=== PATIENT | female | born 1990 ===

== ENCOUNTER 2020-10-12 07:44 | Inpatient (IN) | payer BC ==
[2020-10-12] MEDS ORDERED: Nalbuphine 10 MG/1 ML Vial IVPUSH PRN ×2 (08:36→22:24)
[2020-10-12] MEDS ORDERED: Water For Irrigation,Sterile 1,000 ML Container IRR PRN (08:36)
[2020-10-12] MEDS ORDERED: Misoprostol 200 MCG Tab PO PRN (08:36)
[2020-10-12] MEDS ORDERED: Methylergonovine 0.2 MG/1 ML Amp IM PRN (08:36)
[2020-10-12] MEDS ORDERED: Tranexamic Acid 1,000 MG in Sodium Chloride 0.9% 100 ML IV PRN ×2 (08:36→22:40)
[2020-10-12] MEDS ORDERED: Ampicillin 2 GM in Sodium Chloride 0.9% 100 ML IV ONE (08:36)
[2020-10-12] MEDS ORDERED: Lidocaine 1% 50 ML MDV INJECT PRN (08:36)
[2020-10-12] MEDS ORDERED: Butorphanol 1 MG/ML SDV IVPUSH PRN (08:36)
[2020-10-12] MEDS ORDERED: Sodium Chloride 0.9% 2.5 ML Syringe FLUSH PRN (08:36)
[2020-10-12] MEDS ORDERED: Sodium Chloride 0.9% 10 ML SDV IV PRN (08:36)
[2020-10-12] MEDS ORDERED: Sodium Chloride 0.9% 10 ML Syringe FLUSH PRN (08:36)
[2020-10-12] MEDS ORDERED: Carboprost Tromethamine 250 MCG/1 ML Amp IM PRN (08:36)
[2020-10-12] MEDS ORDERED: Lactated Ringers 1,000 ML IV SCH (08:45)
[2020-10-12] MEDS ORDERED: Oxytocin/0.9 % Sodium Chloride 30 UNIT/500 ML BAG IV SCH ×2 (08:45→11:30)
--- NOTE | 2020-10-12 10:26 | US ---
INDICATION: Low-lying placenta, follow-up. TECHNIQUE: Ultrasound OB pelvis transvaginal. Grayscale and color Doppler imaging was performed COMPARISON: Ob ultrasound 09/15/2020, 08/15/2020 and 07/23/2020 FINDINGS: Sonographic imaging demonstrates a single living intrauterine gestation. Fetus demonstrates a regular cardiac rate of 130 beats per minute. Fetus has a cephalic orientation. The placenta lies posterior with what appears to be the thin placental edge approximately 1.4 cm from the cervical os. The cervix is closed and measures 3.2 cm. IMPRESSION: 1. Single live intrauterine gestation. 2. Posteriorly positioned placenta, remains low lying with the placental edge approximately 1.4 cm from the cervical os. Dictated by Gay oJnes MD @ Oct 12 2020 10:17AM Signed by Dr. Gay Jones @ Oct 12 2020 10:24AM
[2020-10-12] MEDS ORDERED: Terbutaline 1 MG/ML SDV SUBCUT PRN (11:23)
[2020-10-12] MEDS ORDERED: Misoprostol 25 MCG (1/4 of 100 MCG) Tab VAG PRN ×2 (11:23)
[2020-10-12] MEDS ORDERED: Misoprostol 25 MCG (1/4 of 100 MCG) Tab PO ONE (11:27)
--- NOTE | 2020-10-12 11:55 | PCM.LDHP ---
L&D History of Present Illness - General Date of Service: 10/12/20 Admit Problem/Dx: Patient Status Order with Admit Dx/Problem 10/12/20 08:36 Patient Status [ADT] Routine Admission Diagnosis/Problem Admission Diagnosis/Problem Source of Information: Patient, Family, Cvor Nurse History Limitations: Reports: No Limitations - History of Present Illness Introduction:: Am caring for patient in an emergent setting-- Lissette was called out of town for a family emergency and will be gone through the week. Patient was scheduled for elective induction of labor and has chosen to proceed with plan of care. complicated by low lying placenta--sonogram today reveals a posterior low lying placenta measuring 1.38 cm from cervical os. 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: Musculoskeletal History: Reports: None Neurological History: Reports: None Psychiatric History: Reports: None Endocrine/Metabolic History: Reports: None Hematologic History: Reports: None Immunologic History: Reports: None Oncologic (Cancer) History: Reports: None Dermatologic History: Reports: None - Infectious Disease History Infectious Disease History: Reports: Chicken Pox, Measles - Past Surgical History HEENT Surgical History: Reports: None Female Surgical History: Reports: None Social & Family History - Family History HEENT: Reports: None Cardiac: Reports: Hypertension Respiratory: Reports: None GI: Reports: None : Reports: None OBGYN: Reports: Musculoskeletal: Reports: None Neurological: Reports: Alzheimers Disease, CVA Psychiatric: Reports: None Endocrine/Metabolic: Reports: Diabetes, Type I Hematologic: Reports: None Immunologic: Reports: None Dermatologic: Reports: None Oncologic: Reports: Bladder - Tobacco Use Tobacco Use Status *Q: Never Tobacco User Second Hand Smoke Exposure: No - Caffeine Use Caffeine Use: Reports: Soda - Recreational Drug Use Recreational Drug Use: No H&P Review of Systems - Review of Systems: Review Of Systems: See Below General: Reports: No Symptoms HEENT: Reports: No Symptoms Pulmonary: Reports: No Symptoms Cardiovascular: Reports: No Symptoms Gastrointestinal: Reports: No Symptoms Genitourinary: Reports: Frequency. Denies: Dysuria, Burning, Discharge Skin: Reports: No Symptoms Psychiatric: Reports: No Symptoms Neurological: Reports: No Symptoms Hematologic/Lymphatic: Reports: No Symptoms Immunologic: Reports: No Symptoms L&D Exam - Exam Exam: See Below - Vital Signs Weight: 67.132 kg - OB Specific Fundal Height In cm: 38 Contraction Duration (sec): none Presentation: Vertex (via sonogram today) - Wallace Score Wallace Score Cervix Position: Posterior Wallace Score Consistency: Medium Wallace Score Effacement: 31-50% Wallace Score Dilation: Closed Wallace Score 's Station: -3 Wallace Score Total: 2 - Exam General: Alert, Oriented HEENT: Conjunctiva Clear, Mucosa Moist & Pelzer Neck: Supple, Trachea Midline Lungs: Normal Respiratory Effort Cardiovascular: Regular Rate, Regular Rhythm GI/Abdominal Exam: Normal Bowel Sounds, Soft, Non-Tender Genitourinary: Normal external exam. No: Vaginal bleeding Back Exam: Normal Inspection Extremities: Normal Capillary Refill, Pedal Edema (1+). No: Felipe's Sign Skin: Warm, Dry, Intact Neurological: Reflexes Equal Bilateral Psychiatric: Alert, Normal Affect, Anxious - Patient Data Lab Results Last 24 hrs: Laboratory Results - last 24 hr 10/12/20 10/12/20 10/12/20 Range/Units 08:30 08:30 09:35 WBC 12.03 H (4.0-11.0) K/uL RBC 4.27 L (4.30-5.90) M/uL Hgb 10.5 L (12.0-16.0) g/dL Hct 33.5 L (36.0-46.0) % MCV 78.5 L (80.0-98.0) fL MCH 24.6 L (27.0-32.0) pg MCHC 31.3 (31.0-37.0) g/dL RDW Std Deviation 48.7 (28.0-62.0) fl RDW Coeff of Ambrocio 18 H (11.0-15.0) % Plt Count 303 (150-400) K/uL MPV 11.00 (7.40-12.00) fL Nucleated RBC % 0.0 /100WBC Nucleated RBCs # 0 K/uL SARS-CoV-2 RNA (TIMMY) NEGATIVE (NEGATIVE) Blood Type O POSITIVE Antibody Screen NEGATIVE Result Diagrams: 03/07/21 08:30 - Problem List (1) Low lying placenta nos or without hemorrhage, third trimester SNOMED Code(s): 670304991, 919065694 ICD Code: O44.43 - LOW LYING PLACENTA NOS OR WITHOUT HEMOR, THIRD TRIMESTER Status: Acute Current Visit: Yes (2) Term SNOMED Code(s): 19024317 ICD Code: Z34.90 - ENCNTR FOR SUPRVSN OF NORMAL , UNSP, UNSP TRIMESTER Status: Acute Current Visit: Yes (3) Term SNOMED Code(s): 25736693 ICD Code: Z34.90 - ENCNTR FOR SUPRVSN OF NORMAL , UNSP, UNSP TRIMESTER Status: Acute Current Visit: Yes Problem List Initiated/Reviewed/Updated: Yes Orders Last 24hrs: Active Orders 24 hr Category Date Time Status Patient Status [ADT] Routine ADT 10/12/20 08:36 Active Bedrest Bathroom Privileges [RC] ASDIRECTED Care 10/12/20 11:23 Active Communication Order [RC] ASDIRECTED Care 10/12/20 11:23 Active Communication Order [RC] ASDIRECTED Care 10/12/20 11:23 Active Communication Order [RC] ASDIRECTED Care 10/12/20 11:23 Active Heart Tones [RC] CONTINUOUS Care 10/12/20 08:36 Active Non Stress Test [RC] PER UNIT ROUTINE Care 10/12/20 08:36 Active May Shower [RC] ASDIRECTED Care 10/12/20 08:36 Active Notify Provider [RC] PRN Care 10/12/20 08:36 Active Notify Provider [RC] PRN Care 10/12/20 11:23 Active Notify Provider [RC] PRN Care 10/12/20 11:23 Active Notify Provider [RC] STAT Care 10/12/20 11:23 Active Up ad Brianna [RC] ASDIRECTED Care 10/12/20 08:36 Active Vaginal Exam [RC] PRN Care 10/12/20 08:36 Active Vaginal Exam [RC] PRN Care 10/12/20 11:23 Active Vital Signs [RC] PER UNIT ROUTINE Care 10/12/20 08:36 Active Vital Signs [RC] PER UNIT ROUTINE Care 10/12/20 11:23 Active RPR (SYPHILIS SERO) W/ RFLX [REF] Routine Lab 10/12/20 08:30 Received Butorphanol [Stadol] Med 10/12/20 08:36 Active 1 mg IVPUSH Q1H PRN Carboprost Tromethamine [Hemabate DS] Med 10/12/20 08:36 Active 250 mcg IM ASDIRECTED PRN Lactated Ringers [Ringers, Lactated] 1,000 ml Med 10/12/20 08:45 Active IV ASDIRECTED Lidocaine 1% [Xylocaine 1%] Med 10/12/20 08:36 Active 50 ml INJECT ONETIME PRN Methylergonovine [Methergine] Med 10/12/20 08:36 Active 0.2 mg IM ASDIRECTED PRN Nalbuphine [Nubain] Med 10/12/20 08:36 Active 10 mg IVPUSH Q1H PRN Oxytocin/0.9 % Sodium Chloride [Oxytocin 30 Unit/500 ML Med 10/12/20 08:45 Active -NS] 30 unit in 500 ml IV TITRATE Oxytocin/0.9 % Sodium Chloride [Oxytocin 30 Unit/500 ML Med 10/12/20 11:30 Active -NS] 30 unit in 500 ml IV TITRATE Sodium Chloride 0.9% [Normal Saline] Med 10/12/20 08:36 Active 10 ml IV ASDIRECTED PRN Sodium Chloride 0.9% [Saline Flush] Med 10/12/20 08:36 Active 10 ml FLUSH ASDIRECTED PRN Sodium Chloride 0.9% [Saline Flush] Med 10/12/20 08:36 Active 2.5 ml FLUSH ASDIRECTED PRN Terbutaline [Brethine] Med 10/12/20 11:23 Active 0.25 mg SUBCUT ASDIRECTED PRN Tranexamic Acid [Cyklokapron] 1,000 mg Med 10/12/20 08:36 Active Sodium Chloride 0.9% [Normal Saline] 100 ml IV ONETIME Water For Irrigation,Sterile [Sterile Water for Med 10/12/20 08:36 Active Irrigation] 1,000 ml IRR ASDIRECTED PRN miSOPROStoL [Cytotec] Med 10/12/20 08:36 Active 200 mcg PO ONETIME PRN miSOPROStoL [Cytotec] Med 10/12/20 11:23 Active 25 mcg VAG ONETIME PRN miSOPROStoL [Cytotec] Med 10/12/20 11:23 Active 25 mcg VAG Q4H PRN Scalp Electrode [WOMSER] Per Unit Routine Oth 10/12/20 08:36 Ordered Medication Administration Instruction [OM.PC] Q3H Oth 10/12/20 11:30 Ordered Peripheral IV Insertion Adult [OM.PC] Routine Oth 10/12/20 08:36 Ordered Resuscitation Status Routine Resus Stat 10/12/20 08:36 Ordered Medication Orders Butorphanol Tartrate (Stadol) 1 mg IVPUSH Q1H PRN PRN Reason: Pain Carboprost Tromethamine (Hemabate Ds) 250 mcg IM ASDIRECTED PRN PRN Reason: Post Hemorrhage Lactated Ringer's (Ringers, Lactated) 1,000 mls @ 150 mls/hr IV ASDIRECTED CHANDU Oxytocin/Sodium Chloride (Oxytocin 30 Unit/500 Ml-Ns) 30 unit in 500 mls @ 500 mls/hr IV TITRATE CHANDU Tranexamic Acid 1,000 mg/ (Sodium Chloride) 110 mls @ 660 mls/hr IV ONETIME PRN PRN Reason: Bleeding Oxytocin/Sodium Chloride (Oxytocin 30 Unit/500 Ml-Ns) 30 unit in 500 mls @ 2 mls/hr IV TITRATE CHANDU; Protocol Lidocaine HCl (Xylocaine 1%) 50 ml INJECT ONETIME PRN PRN Reason: Laceration repair Methylergonovine Maleate (Methergine) 0.2 mg IM ASDIRECTED PRN PRN Reason: Post Hemorrhage Misoprostol (Cytotec) 200 mcg PO ONETIME PRN PRN Reason: Post Hemorrhage Misoprostol (Cytotec) 25 mcg VAG ONETIME PRN PRN Reason: Cervical Ripening Misoprostol (Cytotec) 25 mcg VAG Q4H PRN PRN Reason: Cervical Ripening Nalbuphine HCl (Nubain) 10 mg IVPUSH Q1H PRN PRN Reason: Pain (severe 7-10) Sodium Chloride (Saline Flush) 10 ml FLUSH ASDIRECTED PRN PRN Reason: Keep Vein Open Sodium Chloride (Saline Flush) 2.5 ml FLUSH ASDIRECTED PRN PRN Reason: Keep Vein Open Sodium Chloride (Normal Saline) 10 ml IV ASDIRECTED PRN PRN Reason: IV Use Sterile Water (Sterile Water For Irrigation) 1,000 ml IRR ASDIRECTED PRN PRN Reason: delivery Terbutaline Sulfate (Brethine) 0.25 mg SUBCUT ASDIRECTED PRN PRN Reason: Tacysystole Assessment/Plan Comment:: 40/2 week IUP Low lying placenta GBBS positive Since there is not a recent sonogram with measurements of placenta from os in records available for my review, did a follow up sonogram today. The posterior placenta measures 1.38 cm from cervical os--so remains low lying. Patient has been followed for this by regular provider and had been told was ok to proceed with induction. I had a further discussion with patient and her with sports attorney on the line to discuss the risks of proceeding with an attempted vaginal delivery with the placenta being this low lying. Risk of bleeding, placental abruption and distress/ discussed. The safest route of delivery for the fetus would be c section in this scenario. Risks of c section include infection, bleeding, possible trauma to bowel/bladder/ureter, risk for thromboembolic event, risk of anesthesia, risk of blood product transfusion and risk of hysterectomy in life saving circumstances. Risk of proceeding with induction include as the cervix becomes more dilated--the placenta could start to separate--which would be an obstetric emergency. The treatment would be emergent c section which involves the same risk as stated above--but the risk of bleeding and distress is much increased. And they understand it does take a moment to be able to go to c section--it is not an immediate solution if complications arise. Ultimately, a controlled setting c section is much preferable. They understand I am medically advising a c section in this scenario--but will respect her wishes since this is a change in plan from her original plan with her usual provider. She has discussed this with her and she is declinin g a c section and prefers to proceed with induction of labor. This discussion took place with a medical record technician and nursing staff present. Anesthesia and nursing blacksmith supervisor has been notified of plan of care.
[2020-10-12] MEDS ORDERED: Ketorolac 30 MG/ML SDV ONE (12:38)
[2020-10-12] MEDS ORDERED: Ondansetron 4 MG/2 ML SDV ONE (12:38)
[2020-10-12] MEDS ORDERED: ceFAZolin 1 GM Vial ONE (12:38)
[2020-10-12] MEDS ORDERED: Phenylephrine 1% 10 MG/ML SDV ONE (12:38)
[2020-10-12] MEDS ORDERED: Oxytocin 10 Units/1 ML SDV ONE (12:38)
[2020-10-12] MEDS ORDERED: Succinylcholine/Sod PF 100 MG/5 ML SYRINGE IV ONE (12:43)
--- NOTE | 2020-10-12 12:49 | PCM.PREANE ---
Preanesthetic Assessment - Anesthesia/Transfusion/Family Hx Anesthesia History: No Prior Anesthesia Family History of Anesthesia Reaction: No Transfusion History: No Prior Transfusion(s) - Physical Assessment NPO Status Date: 10/12/20 NPO Status Time: 06:00 Height: 1.6 m Weight: 67.132 kg ASA Class: 2E Thyro-Mental Finger Breadths: 3 Mouth Opening Finger Breadths: 3 Other: Patient upper flipper, which she agrees will be removed prior to any fo - Lab Values: Laboratory Last Values WBC 12.03 K/uL (4.0-11.0) H 10/12/20 08:30 RBC 4.27 M/uL (4.30-5.90) L 10/12/20 08:30 Hgb 10.5 g/dL (12.0-16.0) L 10/12/20 08:30 Hct 33.5 % (36.0-46.0) L 10/12/20 08:30 MCV 78.5 fL (80.0-98.0) L 10/12/20 08:30 MCH 24.6 pg (27.0-32.0) L 10/12/20 08:30 MCHC 31.3 g/dL (31.0-37.0) 10/12/20 08:30 RDW Std Deviation 48.7 fl (28.0-62.0) 10/12/20 08:30 RDW Coeff of Ambrocio 18 % (11.0-15.0) H 10/12/20 08:30 Plt Count 303 K/uL (150-400) 10/12/20 08:30 MPV 11.00 fL (7.40-12.00) 10/12/20 08:30 Nucleated RBC % 0.0 /100WBC 10/12/20 08:30 Nucleated RBCs # 0 K/uL 10/12/20 08:30 SARS-CoV-2 RNA (TIMMY) NEGATIVE (NEGATIVE) 10/12/20 09:35 Blood Type O POSITIVE 10/12/20 08:30 Antibody Screen NEGATIVE 10/12/20 08:30 Crossmatch See Detail 10/12/20 08:30 - Allergies Allergies/Adverse Reactions: Allergies Allergy/AdvReac Type Severity Reaction Status Date / Time No Known Allergies Allergy Verified 10/12/20 07:53 - Acknowledgements Anesthesia Type Planned: General Anesthesia, Spinal Pt an Appropriate Candidate for the Planned Anesthesia: Yes Alternatives and Risks of Anesthesia Discussed w Pt/Guardian: Yes PreAnesthesia Questionnaire HEENT History: Reports: None, Sinusitis Cardiovascular History: Reports: None Respiratory History: Reports: None Gastrointestinal History: Reports: None Genitourinary History: Reports: None 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: Musculoskeletal History: Reports: None Neurological History: Reports: None Psychiatric History: Reports: None Endocrine/Metabolic History: Reports: None Hematologic History: Reports: None Immunologic History: Reports: None Oncologic (Cancer) History: Reports: None Dermatologic History: Reports: None - Infectious Disease History Infectious Disease History: Reports: Chicken Pox, Measles - Past Surgical History HEENT Surgical History: Reports: None Female Surgical History: Reports: None - SUBSTANCE USE Tobacco Use Status *Q: Never Tobacco User Second Hand Smoke Exposure: No Recreational Drug Use History: No - CURRENT (IN HOUSE) MEDS Current Meds: Current Medications Butorphanol Tartrate (Stadol) 1 mg IVPUSH Q1H PRN PRN Reason: Pain Carboprost Tromethamine (Hemabate Ds) 250 mcg IM ASDIRECTED PRN PRN Reason: Post Hemorrhage Lactated Ringer's (Ringers, Lactated) 1,000 mls @ 150 mls/hr IV ASDIRECTED CHANDU Last Infusion: 10/12/20 11:30 Dose: 0 mls/hr Documented by: Oxytocin/Sodium Chloride (Oxytocin 30 Unit/500 Ml-Ns) 30 unit in 500 mls @ 500 mls/hr IV TITRATE CHANDU Tranexamic Acid 1,000 mg/ (Sodium Chloride) 110 mls @ 660 mls/hr IV ONETIME PRN PRN Reason: Bleeding Oxytocin/Sodium Chloride (Oxytocin 30 Unit/500 Ml-Ns) 30 unit in 500 mls @ 2 mls/hr IV TITRATE [facility]; Protocol Lidocaine HCl (Xylocaine 1%) 50 ml INJECT ONETIME PRN PRN Reason: Laceration repair Methylergonovine Maleate (Methergine) 0.2 mg IM ASDIRECTED PRN PRN Reason: Post Hemorrhage Misoprostol (Cytotec) 200 mcg PO ONETIME PRN PRN Reason: Post Hemorrhage Misoprostol (Cytotec) 25 mcg VAG ONETIME PRN PRN Reason: Cervical Ripening Last Admin: 10/12/20 11:49 Dose: 25 mcg Documented by: Misoprostol (Cytotec) 25 mcg VAG Q4H PRN PRN Reason: Cervical Ripening Nalbuphine HCl (Nubain) 10 mg IVPUSH Q1H PRN PRN Reason: Pain (severe 7-10) Sodium Chloride (Saline Flush) 10 ml FLUSH ASDIRECTED PRN PRN Reason: Keep Vein Open Sodium Chloride (Saline Flush) 2.5 ml FLUSH ASDIRECTED PRN PRN Reason: Keep Vein Open Sodium Chloride (Normal Saline) 10 ml IV ASDIRECTED PRN PRN Reason: IV Use Sterile Water (Sterile Water For Irrigation) 1,000 ml IRR ASDIRECTED PRN PRN Reason: delivery Terbutaline Sulfate (Brethine) 0.25 mg SUBCUT ASDIRECTED PRN PRN Reason: Tacysystole Discontinued Medications Cefazolin Sodium (Ancef) Confirm Administered Dose 2 gm .ROUTE .STK-MED ONE Stop: 10/12/20 12:39 Ampicillin Sodium 2 gm/ Sodium (Chloride) 100 mls @ 200 mls/hr IV ONETIME ONE Stop: 10/12/20 09:05 Last Admin: 10/12/20 10:40 Dose: 200 mls/hr Documented by: Ketorolac Tromethamine (Toradol) Confirm Administered Dose 30 mg .ROUTE .STK-MED ONE Stop: 10/12/20 12:39 Misoprostol (Cytotec) 25 mcg PO ONETIME ONE Stop: 10/12/20 11:28 Last Admin: 10/12/20 11:48 Dose: 25 mcg Documented by: Ondansetron HCl (Zofran) Confirm Administered Dose 4 mg .ROUTE .STK-MED ONE Stop: 10/12/20 12:39 Oxytocin (Pitocin) Confirm Administered Dose 20 unit .ROUTE .STK-MED ONE Stop: 10/12/20 12:39 Phenylephrine HCl (Félix-Synephrine) Confirm Administered Dose 10 mg .ROUTE .STK- MED ONE Stop: 10/12/20 12:39
[2020-10-12] MEDS ORDERED: Ampicillin 1 GM in Sodium Chloride 0.9% 50 ML IV SCH (14:45)
[2020-10-12] MEDS: Ampicillin 1 GM in Sodium Chloride 0.9% 50 ML IV SCH ×2 (14:59→20:44)
[2020-10-12] MEDS ORDERED: Misoprostol 25 MCG (1/4 of 100 MCG) Tab PO PRN (16:00)
[2020-10-12] MEDS ORDERED: Morphine PF 10 MG/10 ML SDV ONE (21:13)
[2020-10-12] MEDS ORDERED: Acetaminophen/oxyCODONE 325-5 MG Tab PO PRN ×2 (22:24→22:40)
[2020-10-12] MEDS ORDERED: Naloxone 0.4 MG/ML Syringe IVPUSH PRN (22:24)
[2020-10-12] MEDS ORDERED: Acetaminophen/HYDROcodone 325-5 MG Tab PO PRN (22:24)
[2020-10-12] MEDS ORDERED: Lanolin 100% Cream 7 GM Tube TOP PRN (22:40)
[2020-10-12] MEDS ORDERED: Bisacodyl 10 MG Supp RECTAL PRN (22:40)
[2020-10-12] MEDS ORDERED: diphenhydrAMINE 50 MG/ML SDV IVPUSH PRN (22:40)
[2020-10-12] MEDS ORDERED: Oxytocin 10 Units/1 ML SDV IM PRN (22:40)
[2020-10-12] MEDS ORDERED: Ondansetron 4 MG/2 ML SDV IVPUSH PRN (22:40)
--- NOTE | 2020-10-12 22:52 | PCM.OPNOTE ---
- General Post-Op/Procedure Note Date of Surgery/Procedure: 10/12/20 Operative Procedure(s): Primary LTCS Findings: Viable male APGARs 7, 9 weight 3830 gm. Delivery posterior placenta with 3V cord Pre Op Diagnosis: 40/2 week IUP. Low lying placenta. GBBS + Post-Op Diagnosis: Same Anesthesia Technique: Spinal Primary Surgeon: Estefania Leary Pathology: placenta Fluid Replacement, Intraop: 1,500 EBL in mLs: 600 Complications: none known Condition: Good Free Text/Narrative:: Dictation [id number]
--- NOTE | 2020-10-12 23:05 | PCM.POSTAN ---
POST ANESTHESIA ASSESSMENT - MENTAL STATUS Mental Status: Alert - RESPIRATORY Respiratory Status: Respiratory Rate WNL - CARDIOVASCULAR CV Status: Pulse Rate WNL - GASTROINTESTINAL GI Status: No Symptoms - POST OP HYDRATION Hydration Status: Adequate & Stable
--- NOTE | 2020-10-12 23:52 | OR ---
SURGEON: Estefania Leary M.D. DATE OF PROCEDURE: 10/12/2020 PREOPERATIVE DIAGNOSES: 1. 40-2/7 week intrauterine . 2. Low-lying placenta. 3. Group B beta Streptococcus positive. POSTOPERATIVE DIAGNOSES: 1. 40-2/7 week intrauterine . 2. Low-lying placenta. 3. Group B beta Streptococcus positive. PROCEDURE: Primary low-transverse section. PRIMARY SURGEON: Estefania Leary M.D. ANESTHESIA: Spinal. ESTIMATED BLOOD LOSS: 600 mL. FLUIDS: 1300 mL of crystalloid. COMPLICATIONS: None known. FINDINGS: Viable male. scores 7 at one minute and 9 at five minutes. Weight of 3830 g. Delivery. Posterior placenta. Three-vessel cord. DISPOSITION: Infant to nursery. Mom to PACU stable. INDICATIONS: Syed is a 29-year-old, G1, P0, at 40-2/7 weeks' gestational age, who presented on the morning of 10/12/2020, for initially scheduled induction of labor. At this time, I am covering for Dr. Moody, who had to leave emergently for a family emergency. Upon review of her records, it is noted that she has had a low-lying placenta. There has not been a recent documented sonogram measuring the placental edge. Therefore, a sonogram was performed, and the placental edge is measuring 1.38 cm from os. I have discussed this finding with the patient and her and advised that I would proceed with delivery. However, since they had already been counseled toward induction, she felt initially that she wanted to proceed in this direction. Therefore, the patient did receive 2 doses of Cytotec. She had made minimal cervical change, had a very unfavorable cervix. However, in the evening hours, after further discussion, she decided that she would rather proceed with delivery. The risks of the procedure have been discussed with her including infection; bleeding; possible trauma to the surrounding bowel, bladder, ureters; in case of excessive blood loss, need for blood product transfusion; in rare lifesaving circumstances need for hysterectomy; risk for thromboembolic event, risk of anesthesia. She voiced her understanding. Proper consent obtained. DESCRIPTION OF PROCEDURE: The patient was taken to the operating where she underwent spinal anesthetic, was then placed into the dorsal supine position with leftward tilt. SCDs to the lower extremities. Herbert to gravity. Prepped and draped in the usual sterile fashion. She received Ancef prophylactically. Time-out was performed. Anesthesia was tested and found to be adequate. A Pfannenstiel skin incision was created and carried down to the left level of rectus fascia, which was incised in the midline, lateralized on either side sharply and bluntly. The superior aspect of the fascia was tented upward, dissected sharply and bluntly away from the underlying muscle. In a similar aspect, this was performed with the inferior aspect of fascia. Rectus muscle was in the midline. Peritoneum was entered. Rectus muscle and peritoneum were now lateralized bluntly. Uterine position and position were palpated. Self-retaining retractor was now gently placed. Uterovesical reflection was visualized. Bladder flap was created sharply and bluntly. Bladder was mobilized away from lower uterine segment. Low transverse hysterotomy was now performed. Uterine cavity was entered with the blunt-ended scalpel. Large amount of clear fluid was returned. The 's head was delivered direct OP and was not engaged in the pelvis. The head was delivered followed by shoulders and remainder of body. The infant's oropharynx and nares were bulb suctioned. The cord was clamped x2 and cut. was handed off to attending locomotive lubricating systems clerk. Cord arterial, cord venous, and cord blood sampling obtained. The placenta was now delivered. It will be sent to Pathology for analysis. Uterine cavity was cleared of all clot and debris. Hysterotomy was repaired using 0 Vicryl in continuous running locked fashion followed by re-imbricating layer. Posterior aspect of uterus inspected. No defects or hematomas found to be forming. Ovaries appeared normal. Regions were well irrigated and suction dried. Uterus returned to the abdominal cavity. Colonic gutters were cleared of all clot and debris, well irrigated and suction dried. The uterus was involuting nicely. A few areas of serosal oozing were now cauterized. Hemostasis was evident. The self-retaining retractor was now removed. Bladder blade was placed. Hysterotomy was again inspected and found to be hemostatic. Rectus muscle and peritoneum were now reapproximated using 0 Vicryl in an inverted mattress suture continuous fashion. Anterior aspect of the muscle and posterior aspect fascia were closely inspected. Any areas of oozing were cauterized. The rectus fascia was now reapproximated using 0 Vicryl in continuous running fashion, beginning laterally on either side and meeting in the midline. Subcutaneous tissue was well irrigated and suction dried. Any areas of oozing were cauterized. Skin edges were reapproximated using 3-0 Vicryl in subcuticular fashion followed by re- imbrication with half-inch Steri-Strips and Mastisol. Sponge, instrument, and needle counts were correct x2. The patient tolerated the procedure well overall. She will go to PACU in stable condition. Infant to nursery. GWEN / CORINE /[id number]
[2020-10-13] MEDS: Simethicone 80 MG Tab.Chew PO SCH ×4 (00:19→17:02)
[2020-10-13] MEDS: Lactated Ringers 1,000 ML IV SCH ×2 (01:49→08:50)
[2020-10-13] MEDS: Ketorolac 30 MG/ML SDV IVPUSH SCH ×4 (04:21→17:01)
--- NOTE | 2020-10-13 07:48 | PCM.PNPP ---
- General Info Date of Service: 10/13/20 Functional Status: Reports: Pain Controlled, Tolerating Diet - Review of Systems General: Reports: Fatigue. Denies: Fever, Weakness Pulmonary: Denies: Shortness of Breath Cardiovascular: Denies: Chest Pain, Palpitations, Lightheadedness Gastrointestinal: Denies: Abdominal Pain, Nausea, Vomiting Genitourinary: Denies: Flank Pain Musculoskeletal: Reports: No Symptoms Skin: Reports: No Symptoms Neurological: Reports: No Symptoms Psychiatric: Reports: No Symptoms - General Info Date of Service: 10/13/20 - Patient Data Vital Signs - Most Recent: Last Vital Signs Temp 36.6 C 10/13/20 04:17 Pulse 84 10/13/20 05:00 Resp 17 10/13/20 05:00 BP 103/58 L 10/13/20 04:17 Pulse Ox 98 10/13/20 05:00 Weight - Most Recent: 67.132 kg I&O - Last 24 Hours: Intake & Output 10/12/20 10/13/20 10/13/20 22:59 06:59 14:59 Intake Total 1500 Output Total 150 75 Balance 1350 -75 Lab Results - Last 24 Hours: Laboratory Results - last 24 hr 10/12/20 10/12/20 10/12/20 Range/Units 08:30 08:30 09:35 WBC 12.03 H (4.0-11.0) K/uL RBC 4.27 L (4.30-5.90) M/uL Hgb 10.5 L (12.0-16.0) g/dL Hct 33.5 L (36.0-46.0) % MCV 78.5 L (80.0-98.0) fL MCH 24.6 L (27.0-32.0) pg MCHC 31.3 (31.0-37.0) g/dL RDW Std Deviation 48.7 (28.0-62.0) fl RDW Coeff of Ambrocio 18 H (11.0-15.0) % Plt Count 303 (150-400) K/uL MPV 11.00 (7.40-12.00) fL Nucleated RBC % 0.0 /100WBC Nucleated RBCs # 0 K/uL Cord ABG pH (7.18-7.38) Cord ABG Base Excess (-10--2) Cord VBG pH (7.25-7.45) Cord VBG Base Excess (-10--2) SARS-CoV-2 RNA (TIMMY) NEGATIVE (NEGATIVE) Blood Type O POSITIVE Antibody Screen NEGATIVE Crossmatch See Detail 10/12/20 10/13/20 Range/Units 22:01 05:30 WBC (4.0-11.0) K/uL RBC (4.30-5.90) M/uL Hgb 8.6 L (12.0-16.0) g/dL Hct 27.7 L (36.0-46.0) % MCV (80.0-98.0) fL MCH (27.0-32.0) pg MCHC (31.0-37.0) g/dL RDW Std Deviation (28.0-62.0) fl RDW Coeff of Ambrocio (11.0-15.0) % Plt Count (150-400) K/uL MPV (7.40-12.00) fL Nucleated RBC % /100WBC Nucleated RBCs # K/uL Cord ABG pH 7.240 (7.18-7.38) Cord ABG Base Excess -6.2 (-10--2) Cord VBG pH 7.266 (7.25-7.45) Cord VBG Base Excess -5.9 (-10--2) SARS-CoV-2 RNA (TIMMY) (NEGATIVE) Blood Type Antibody Screen Crossmatch Med Orders - Current: Current Medications Hydrocodone Bitart/Acetaminophen ([place] 325-5 Mg) 2 tab PO Q6H PRN PRN Reason: Pain (moderate 4-6) Bisacodyl (Dulcolax) 10 mg RECTAL ONETIME PRN PRN Reason: Constipation Carboprost Tromethamine (Hemabate Ds) 250 mcg IM ASDIRECTED PRN PRN Reason: Post Hemorrhage Diphenhydramine HCl (Benadryl) 25 mg IVPUSH Q6H PRN PRN Reason: Itching or Nausea Docusate Sodium (Colace) 100 mg PO BID [facility] Emollient Ointment (Lansinoh Hpa) 0 gm TOP ASDIRECTED PRN PRN Reason: Sore Nipples Lactated Ringer's (Ringers, Lactated) 1,000 mls @ 150 mls/hr IV ASDIRECTED CHANDU Last Infusion: 10/12/20 11:30 Dose: 0 mls/hr Documented by: Oxytocin/Sodium Chloride (Oxytocin 30 Unit/500 Ml-Ns) 30 unit in 500 mls @ 500 mls/hr IV TITRATE CH[facility]U Tranexamic Acid 1,000 mg/ (Sodium Chloride) 110 mls @ 660 mls/hr IV ONETIME PRN PRN Reason: Bleeding Oxytocin/Sodium Chloride (Oxytocin 30 Unit/500 Ml-Ns) 30 unit in 500 mls @ 2 mls/hr IV TITRATE CHANDU; Protocol Lactated Ringer's (Ringers, Lactated) 1,000 mls @ 125 mls/hr IV ASDIRECTED [facility] Last Admin: 10/13/20 01:49 Dose: 125 mls/hr Documented by: Tranexamic Acid 1,000 mg/ (Sodium Chloride) 110 mls @ 660 mls/hr IV ONETIME PRN PRN Reason: Bleeding Ibuprofen (Motrin) 800 mg PO Q8H PRN PRN Reason: mild pain or fever Ketorolac Tromethamine (Toradol) 30 mg IVPUSH Q6H [facility] Stop: 10/13/20 22:46 Last Admin: 10/13/20 04:22 Dose: 30 mg Documented by: Lidocaine HCl (Xylocaine 1%) 50 ml INJECT ONETIME PRN PRN Reason: Laceration repair Methylergonovine Maleate (Methergine) 0.2 mg IM ASDIRECTED PRN PRN Reason: Post Hemorrhage Nalbuphine HCl (Nubain) 10 mg IVPUSH Q1H PRN PRN Reason: Pain (severe 7-10) Nalbuphine HCl (Nubain) 2.5 mg IVPUSH Q3H PRN PRN Reason: Pruritis Stop: 10/13/20 22:24 Naloxone HCl (Narcan) 0.1 mg IVPUSH ONETIME PRN PRN Reason: Respiratory Depression Stop: 10/13/20 22:25 Ondansetron HCl (Zofran) 4 mg IVPUSH Q4H PRN PRN Reason: Nausea/Vomiting Oxycodone/Acetaminophen (Percocet 325-5 Mg) 1 tab PO ONETIME PRN PRN Reason: Pain (mild 1-3) Oxycodone/Acetaminophen (Percocet 325-5 Mg) 1 tab PO Q4H PRN PRN Reason: Pain (moderate 4-6) Oxycodone/Acetaminophen (Percocet 325-5 Mg) 2 tab PO Q4H PRN PRN Reason: Pain (moderate 4-6) Oxytocin (Pitocin) 10 unit IM ASDIRECTED PRN PRN Reason: Excessive Vaginal Bleeding Simethicone (Simethicone) 160 mg PO QID [facility] Last Admin: 10/13/20 07:07 Dose: Not Given Documented by: Sodium Chloride (Saline Flush) 10 ml FLUSH ASDIRECTED PRN PRN Reason: Keep Vein Open Sodium Chloride (Saline Flush) 2.5 ml FLUSH ASDIRECTED PRN PRN Reason: Keep Vein Open Sodium Chloride (Normal Saline) 10 ml IV ASDIRECTED PRN PRN Reason: IV Use Sterile Water (Sterile Water For Irrigation) 1,000 ml IRR ASDIRECTED PRN PRN Reason: delivery Discontinued Medications Butorphanol Tartrate (Stadol) 1 mg IVPUSH Q1H PRN PRN Reason: Pain Cefazolin Sodium (Ancef) Confirm Administered Dose 2 gm .ROUTE .STK-MED ONE Stop: 10/12/20 12:39 Ampicillin Sodium 2 gm/ Sodium (Chloride) 100 mls @ 200 mls/hr IV ONETIME ONE Stop: 10/12/20 09:05 Last Admin: 10/12/20 10:40 Dose: 200 mls/hr Documented by: Ampicillin Sodium 1 gm/ Sodium (Chloride) 50 mls @ 100 mls/hr IV Q4H [facility] Ampicillin Sodium 1 gm/ Sodium (Chloride) 50 mls @ 100 mls/hr IV Q4H [facility] Last Admin: 10/12/20 20:44 Dose: 100 mls/hr Documented by: Ketorolac Tromethamine (Toradol) Confirm Administered Dose 30 mg .ROUTE .STK-MED ONE Stop: 10/12/20 12:39 Misoprostol (Cytotec) 200 mcg PO ONETIME PRN PRN Reason: Post Hemorrhage Misoprostol (Cytotec) 25 mcg VAG ONETIME PRN PRN Reason: Cervical Ripening Last Admin: 10/12/20 11:49 Dose: 25 mcg Documented by: Misoprostol (Cytotec) 25 mcg VAG Q4H PRN PRN Reason: Cervical Ripening Last Admin: 10/12/20 16:11 Dose: 25 mcg Documented by: Misoprostol (Cytotec) 25 mcg PO ONETIME ONE Stop: 10/12/20 11:28 Last Admin: 10/12/20 11:48 Dose: 25 mcg Documented by: Misoprostol (Cytotec) 25 mcg PO Q4H PRN PRN Reason: Other Last Admin: 10/12/20 16:11 Dose: 25 mcg Documented by: Morphine Sulfate (Duramorph Pf) Confirm Administered Dose 10 mg .ROUTE .STK-MED ONE Stop: 10/12/20 21:14 Ondansetron HCl (Zofran) Confirm Administered Dose 4 mg .ROUTE .STK-MED ONE Stop: 10/12/20 12:39 Oxytocin (Pitocin) Confirm Administered Dose 20 unit .ROUTE .STK-MED ONE Stop: 10/12/20 12:39 Phenylephrine HCl (Félix-Synephrine) Confirm Administered Dose 10 mg .ROUTE .STK- MED ONE Stop: 10/12/20 12:39 Terbutaline Sulfate (Brethine) 0.25 mg SUBCUT ASDIRECTED PRN PRN Reason: Tacysystole - Infant Interaction Support Person: - Recovery Exam Fundal Tone: Firm Fundal Level: At Umbilicus Fundal Placement: Midline Lochia Amount: Scant Lochia Color: Rubra/Red Bladder Status: Indwelling Catheter in Place Urinary Elimination: Indwelling Catheter - Exam General: Alert, Oriented Lungs: Normal Respiratory Effort Cardiovascular: Regular Rate, Regular Rhythm GI/Abdominal Exam: Normal Bowel Sounds, Soft Extremities: Pedal Edema (trace). No: Felipe's Sign Skin: Warm, Dry, Intact Neurological: No New Focal Deficit Psy/Mental Status: Alert, Normal Affect, Normal Mood - Problem List & Annotations (1) Low lying placenta nos or without hemorrhage, third trimester SNOMED Code(s): 796311786, 278621261 Code(s): O44.43 - LOW LYING PLACENTA NOS OR WITHOUT HEMOR, THIRD TRIMESTER Status: Acute Current Visit: Yes (2) Term SNOMED Code(s): 17192812 Code(s): Z34.90 - ENCNTR FOR SUPRVSN OF NORMAL , UNSP, UNSP TRIMESTER Status: Acute Current Visit: Yes (3) Term SNOMED Code(s): 12125436 Code(s): Z34.90 - ENCNTR FOR SUPRVSN OF NORMAL , UNSP, UNSP TRIMESTER Status: Acute Current Visit: Yes - Problem List Review Problem List Initiated/Reviewed/Updated: Yes - My Orders Last 24 Hours: My Active Orders 10/12/20 08:30 RED BLOOD CELLS LP [BBK] Routine 10/12/20 Lunch Regular Diet [DIET] 10/12/20 Dinner Regular Diet [DIET] 10/12/20 22:40 Patient Status [ADT] Routine Ambulate [RC] PER UNIT ROUTINE Communication Order [RC] PER UNIT ROUTINE Communication Order [RC] Per Unit Routine May Shower [RC] ASDIRECTED Notify Provider Intake and Out [RC] ASDIRECTED Notify Provider Vital Signs [RC] ASDIRECTED RT Incentive Spirometry [RC] Q2HWA Vital Signs [RC] PER UNIT ROUTINE Acetaminophen/oxyCODONE [Percocet 325-5 MG] 1 tab PO Q4H PRN Acetaminophen/oxyCODONE [Percocet 325-5 MG] 2 tab PO Q4H PRN Lanolin [Lansinoh HPA] See Dose Instructions TOP ASDIRECTED PRN Ondansetron [Zofran] 4 mg IVPUSH Q4H PRN Oxytocin [Pitocin] 10 unit IM ASDIRECTED PRN Tranexamic Acid [Cyklokapron] 1,000 mg Sodium Chloride 0.9% [Normal Saline] 100 ml IV ONETIME bisacodyL [Dulcolax] 10 mg RECTAL ONETIME PRN diphenhydrAMINE [Benadryl] 25 mg IVPUSH Q6H PRN Abdominal Binder [OM.PC] Routine Assess Lochia [WOMSER] Per Unit Routine Assess Uterine Involution [WOMSER] Per Unit Routine Breast Pump [WOMSER] Per Unit Routine Heat Therapy [OM.PC] Routine Ice Therapy [OM.PC] Routine Sequential Compression Device [OM.PC] Per Unit Routine 10/12/20 22:41 Antiembolic Devices [RC] PER UNIT ROUTINE Communication Order [RC] PER UNIT ROUTINE Peripheral IV Discontinue [OM.PC] Routine 10/12/20 22:45 Ketorolac [Toradol] 30 mg IVPUSH Q6H Lactated Ringers [Ringers, Lactated] 1,000 ml IV ASDIRECTED 10/13/20 00:00 Simethicone 160 mg PO QID 10/13/20 09:00 Docusate Sodium [Colace] 100 mg PO BID 10/14/20 04:30 Ibuprofen [Motrin] 800 mg PO Q8H PRN - Assessment Assessment:: POD 1 status post Primary LTCS - Plan Plan:: Doing well overall. Pain is controlled, tolerating regular diet and working with . Continue postoperative cares.
[2020-10-13] MEDS: Docusate Sodium 100 MG Cap PO SCH (08:48)
--- NOTE | 2020-10-13 10:55 | PCM48HPAN ---
Post Anesthesia Note - EVALUATION WITHIN 48HRS OF ANESTHETIC Vital Signs in Normal Range: Yes Patient Participated in Evaluation: Yes Respiratory Function Stable: Yes Airway Patent: Yes Cardiovascular Function Stable: Yes Hydration Status Stable: Yes Pain Control Satisfactory: Yes Nausea and Vomiting Control Satisfactory: Yes Mental Status Recovered: Yes Vital Signs: Last Vital Signs Temp 36.8 C 10/13/20 07:53 Pulse 92 10/13/20 09:00 Resp 16 10/13/20 09:00 BP 102/68 10/13/20 07:53 Pulse Ox 98 10/13/20 09:00
--- NOTE | 2020-10-13 13:26 | PCM48HPAN ---
Post Anesthesia Note - EVALUATION WITHIN 48HRS OF ANESTHETIC Vital Signs in Normal Range: Yes Patient Participated in Evaluation: Yes Respiratory Function Stable: Yes Airway Patent: Yes Cardiovascular Function Stable: Yes Hydration Status Stable: Yes Pain Control Satisfactory: Yes (Denies any pain) Nausea and Vomiting Control Satisfactory: Yes Mental Status Recovered: Yes Vital Signs: Last Vital Signs Temp 36.8 C 10/13/20 07:53 Pulse 98 10/13/20 11:00 Resp 17 10/13/20 11:00 BP 102/68 10/13/20 07:53 Pulse Ox 100 10/13/20 11:00 - COMMENTS/OBSERVATIONS Free Text/Narrative:: Patient states she has not been out of bed yet but is doing great and denies any complaints.
[2020-10-14] MEDS: Ketorolac 30 MG/ML SDV IVPUSH SCH (00:25)
[2020-10-14] MEDS: Simethicone 80 MG Tab.Chew PO SCH ×3 (00:26→12:24)
[2020-10-14] MEDS: Acetaminophen/oxyCODONE 325-5 MG Tab PO PRN ×2 (00:48→12:24)
[2020-10-14] MEDS ORDERED: Ibuprofen 800 MG Tab PO PRN (04:30)
[2020-10-14] MEDS: Docusate Sodium 100 MG Cap PO SCH ×2 (07:45→09:07)
--- NOTE | 2020-10-14 09:04 | PCM.PNPP ---
- General Info Date of Service: 10/14/20 Functional Status: Reports: Pain Controlled, Tolerating Diet, Ambulating, Urinating - Review of Systems General: Reports: Fatigue. Denies: Fever, Weakness Pulmonary: Denies: Shortness of Breath Cardiovascular: Denies: Chest Pain, Palpitations, Lightheadedness Gastrointestinal: Denies: Abdominal Pain, Nausea, Vomiting Genitourinary: Denies: Flank Pain Skin: Reports: No Symptoms Neurological: Reports: No Symptoms Psychiatric: Reports: No Symptoms - General Info Date of Service: 10/14/20 - Patient Data Vital Signs - Most Recent: Last Vital Signs Temp 36.3 C 10/14/20 08:05 Pulse 86 10/14/20 08:05 Resp 18 10/14/20 08:05 BP 101/68 10/14/20 08:05 Pulse Ox 96 10/14/20 08:05 Weight - Most Recent: 67.132 kg I&O - Last 24 Hours: Intake & Output 10/13/20 10/14/20 10/14/20 22:59 06:59 14:59 Output Total 1400 Balance -1400 Med Orders - Current: Current Medications Bisacodyl (Dulcolax) 10 mg RECTAL ONETIME PRN PRN Reason: Constipation Carboprost Tromethamine (Hemabate Ds) 250 mcg IM ASDIRECTED PRN PRN Reason: Post Hemorrhage Diphenhydramine HCl (Benadryl) 25 mg IVPUSH Q6H PRN PRN Reason: Itching or Nausea Docusate Sodium (Colace) 100 mg PO BID [facility] Last Admin: 10/14/20 07:45 Dose: Not Given Documented by: Emollient Ointment (Lansinoh Hpa) 0 gm TOP ASDIRECTED PRN PRN Reason: Sore Nipples Lactated Ringer's (Ringers, Lactated) 1,000 mls @ 150 mls/hr IV ASDIRECTED [facility] Last Infusion: 10/12/20 11:30 Dose: 0 mls/hr Documented by: Oxytocin/Sodium Chloride (Oxytocin 30 Unit/500 Ml-Ns) 30 unit in 500 mls @ 500 mls/hr IV TITRATE [facility] Tranexamic Acid 1,000 mg/ (Sodium Chloride) 110 mls @ 660 mls/hr IV ONETIME PRN PRN Reason: Bleeding Oxytocin/Sodium Chloride (Oxytocin 30 Unit/500 Ml-Ns) 30 unit in 500 mls @ 2 mls/hr IV TITRATE CHANDU; Protocol Lactated Ringer's (Ringers, Lactated) 1,000 mls @ 125 mls/hr IV ASDIRECTED [facility] Last Admin: 10/13/20 08:50 Dose: 125 mls/hr Documented by: Tranexamic Acid 1,000 mg/ (Sodium Chloride) 110 mls @ 660 mls/hr IV ONETIME PRN PRN Reason: Bleeding Ibuprofen (Motrin) 800 mg PO Q8H PRN PRN Reason: mild pain or fever Lidocaine HCl (Xylocaine 1%) 50 ml INJECT ONETIME PRN PRN Reason: Laceration repair Methylergonovine Maleate (Methergine) 0.2 mg IM ASDIRECTED PRN PRN Reason: Post Hemorrhage Nalbuphine HCl (Nubain) 10 mg IVPUSH Q1H PRN PRN Reason: Pain (severe 7-10) Ondansetron HCl (Zofran) 4 mg IVPUSH Q4H PRN PRN Reason: Nausea/Vomiting Oxycodone/Acetaminophen (Percocet 325-5 Mg) 1 tab PO Q4H PRN PRN Reason: Pain (moderate 4-6) Oxycodone/Acetaminophen (Percocet 325-5 Mg) 2 tab PO Q4H PRN PRN Reason: Pain (moderate 4-6) Last Admin: 10/14/20 00:48 Dose: 2 tab Documented by: Oxytocin (Pitocin) 10 unit IM ASDIRECTED PRN PRN Reason: Excessive Vaginal Bleeding Simethicone (Simethicone) 160 mg PO QID [facility] Last Admin: 10/14/20 07:46 Dose: Not Given Documented by: Sodium Chloride (Saline Flush) 10 ml FLUSH ASDIRECTED PRN PRN Reason: Keep Vein Open Sodium Chloride (Saline Flush) 2.5 ml FLUSH ASDIRECTED PRN PRN Reason: Keep Vein Open Sodium Chloride (Normal Saline) 10 ml IV ASDIRECTED PRN PRN Reason: IV Use Sterile Water (Sterile Water For Irrigation) 1,000 ml IRR ASDIRECTED PRN PRN Reason: delivery Discontinued Medications Butorphanol Tartrate (Stadol) 1 mg IVPUSH Q1H PRN PRN Reason: Pain Cefazolin Sodium (Ancef) Confirm Administered Dose 2 gm .ROUTE .STK-MED ONE Stop: 10/12/20 12:39 Ampicillin Sodium 2 gm/ Sodium (Chloride) 100 mls @ 200 mls/hr IV ONETIME ONE Stop: 10/12/20 09:05 Last Admin: 10/12/20 10:40 Dose: 200 mls/hr Documented by: Ampicillin Sodium 1 gm/ Sodium (Chloride) 50 mls @ 100 mls/hr IV Q4H [facility] Ampicillin Sodium 1 gm/ Sodium (Chloride) 50 mls @ 100 mls/hr IV Q4H [facility] Last Admin: 10/12/20 20:44 Dose: 100 mls/hr Documented by: Ketorolac Tromethamine (Toradol) Confirm Administered Dose 30 mg .ROUTE .STK-MED ONE Stop: 10/12/20 12:39 Ketorolac Tromethamine (Toradol) 30 mg IVPUSH Q6H [facility] Stop: 10/13/20 22:46 Last Admin: 10/14/20 00:25 Dose: 30 mg Documented by: Misoprostol (Cytotec) 200 mcg PO ONETIME PRN PRN Reason: Post Hemorrhage Misoprostol (Cytotec) 25 mcg VAG ONETIME PRN PRN Reason: Cervical Ripening Last Admin: 10/12/20 11:49 Dose: 25 mcg Documented by: Misoprostol (Cytotec) 25 mcg VAG Q4H PRN PRN Reason: Cervical Ripening Last Admin: 10/12/20 16:11 Dose: 25 mcg Documented by: Misoprostol (Cytotec) 25 mcg PO ONETIME ONE Stop: 10/12/20 11:28 Last Admin: 10/12/20 11:48 Dose: 25 mcg Documented by: Misoprostol (Cytotec) 25 mcg PO Q4H PRN PRN Reason: Other Last Admin: 10/12/20 16:11 Dose: 25 mcg Documented by: Morphine Sulfate (Duramorph Pf) Confirm Administered Dose 10 mg .ROUTE .STK-MED ONE Stop: 10/12/20 21:14 Nalbuphine HCl (Nubain) 2.5 mg IVPUSH Q3H PRN PRN Reason: Pruritis Stop: 10/13/20 22:24 Naloxone HCl (Narcan) 0.1 mg IVPUSH ONETIME PRN PRN Reason: Respiratory Depression Stop: 10/13/20 22:25 Ondansetron HCl (Zofran) Confirm Administered Dose 4 mg .ROUTE .STK-MED ONE Stop: 10/12/20 12:39 Oxytocin (Pitocin) Confirm Administered Dose 20 unit .ROUTE .STK-MED ONE Stop: 10/12/20 12:39 Phenylephrine HCl (Félix-Synephrine) Confirm Administered Dose 10 mg .ROUTE .STK- MED ONE Stop: 10/12/20 12:39 Terbutaline Sulfate (Brethine) 0.25 mg SUBCUT ASDIRECTED PRN PRN Reason: Tacysystole - Infant Interaction Support Person: - Recovery Exam Fundal Tone: Firm Fundal Level: At Umbilicus Fundal Placement: Midline Lochia Amount: Scant Lochia Color: Rubra/Red Perineum Description: Intact, Minimal Bruising/Swelling Episiotomy/Laceration: None Bladder Status: Voiding Urinary Elimination: Indwelling Catheter - Exam General: Alert, Oriented Lungs: Normal Respiratory Effort Cardiovascular: Regular Rate, Regular Rhythm GI/Abdominal Exam: Normal Bowel Sounds, Soft Extremities: Pedal Edema (trace). No: Felipe's Sign Skin: Warm, Dry, Intact Wound/Incisions: Healing Well, No Drainage. No: Erythema Neurological: No New Focal Deficit Psy/Mental Status: Alert, Normal Affect, Normal Mood - Problem List & Annotations (1) Low lying placenta nos or without hemorrhage, third trimester SNOMED Code(s): 970718233, 495097342 Code(s): O44.43 - LOW LYING PLACENTA NOS OR WITHOUT HEMOR, THIRD TRIMESTER Status: Acute Current Visit: Yes (2) Term SNOMED Code(s): 52735417 Code(s): Z34.90 - ENCNTR FOR SUPRVSN OF NORMAL , UNSP, UNSP TRIMESTER Status: Acute Current Visit: Yes (3) Term SNOMED Code(s): 24249345 Code(s): Z34.90 - ENCNTR FOR SUPRVSN OF NORMAL , UNSP, UNSP TRIMESTER Status: Acute Current Visit: Yes - Problem List Review Problem List Initiated/Reviewed/Updated: Yes - My Orders Last 24 Hours: My Active Orders 10/13/20 09:00 Docusate Sodium [Colace] 100 mg PO BID 10/14/20 04:30 Ibuprofen [Motrin] 800 mg PO Q8H PRN 10/14/20 09:02 Ready for Discharge [RC] PER UNIT ROUTINE - Assessment Assessment:: POD 2 status post Primary LTCS - Plan Plan:: Doing well overall. Pain is controlled. Has been ambulating and voiding. Would like to go home today. Discharge instructions reviewed. Follow up at [facility] on week. Discharge to home
== END 2020-10-14 14:14 | disposition home or self-care (01) | DRG 540 ==
LOC: MW.OBCHECK 07:44 → MW.OB 07:45 → MW.OBCHECK 08:36 → MW.OB 08:36 → OBSVTOIN 22:00 → MW.OB 10-13 02:05
PROVIDERS: ADMIT Obstetrics & Gynecology; ATTEND Obstetrics & Gynecology
PROC: 10D00Z1 Extraction of Products of Conception, Low, Open Approach (ICD-10-PCS; principal; 2020-10-12)
DX: O44.43 Low lying placenta NOS or without hemorrhage, third trimester (principal); O48.0 Post-term pregnancy; Z3A.40 40 weeks gestation of pregnancy; Z37.0 Single live birth; Z20.822 Contact with and (suspected) exposure to COVID-19
CPT/HCPCS: 01961; 36415; 76817; 76817-26; 82803; 85014; 85018; 85027; 86592; 86850; 86900; 86901; 86920; 86921; 86922; 88307; A9270-GY; J0290; J0330; J0690; J1885; J2270; J2370; J2405; J2590; J7120; U0002